=== PATIENT | female | born 1975 | race American Indian/Alaskan Native ===

== ENCOUNTER 2017-11-10 15:35 | Emergency (ER) | payer MEDICAID ==
--- NOTE | 2017-11-10 16:10 | Emergency Department Report ---
Chief Complaint: Abdominal Pain Stated Complaint: LEFT SIDE ABD PAIN Time Seen by Provider: 11/10/17 16:05 - HPI History of Present Illness: Patient is a 42-year-old female with a history of fibroids who presents presents ED complaining of lower pelvic pain 3 days. Patient states pain is worse on the left side and localized to the left side low pelvic region. Patient denies any vaginal bleeding, vaginal discharge, she reports last measure. This 10/10/2017 and states recently she was on the dip all through to 4 months ago but did not go back for a second Depo shot due to worsening depression symptoms while on the Depo Prov - ROS Review of Systems: As noted in HPI - Exam Vital Signs: Vital Signs 11/10/17 15:40 Temperature 98.5 F Pulse Rate 113 H Respiratory 18 Rate Blood Pressure 139/79 O2 Sat by Pulse 98 Oximetry Physical Exam: GENERAL: Alert and oriented x3, no apparent distress, Normal Gait, atraumatic. ABDOMEN: No organomegaly was noted,Positive bowel sounds, soft, and non- distended. . Nontender to palpation on all Quadrants, NO CVA tenderness. BACK: Full range of motion, no spinal tenderness, nontender to palpation. MSE screening note: Focused history and physical exam performed. Due to findings the following was ordered: ED Medical Decision Making - Medical Decision Making 42-year-old female in no acute distress Labs ordered, ultrasound ordered If all labs are Normal patient can be seen by fast track provider Otherwise can be seen by ED physician ED Disposition for MSE Condition: Stable Instructions: Abdominal Pain (ED)
[2017-11-10 16:35] LABS: Bilirubin,Urine NEG (Negative); Blood,Urine NEG (Negative); Ketones,Urine TR mg/dL (Negative); Leukocyte Esterase,Urine NEG (Negative); Mucus,Urine 1+ /HPF; Nitrite,Urine NEG (Negative); Protein,Urine <15 mg/dL mg/dL (Negative)
[2017-11-10 16:40] LABS: Basophils % (Auto) 0.7 % (0.0-1.8); Eosinophils % (Auto) 3.2 % (0.0-4.3); Hematocrit 40.1 % (30.3-42.9); Hemoglobin 13.3 gm/dl (10.1-14.3); Mean Corpuscular HGB Conc 33 % (30-34); Mean Corpuscular Hemoglobin 28 pg (28-32); Mean Corpuscular Volume 85 fl (79-97); Platelet Count 300 K/mm3 (140-440); Red Blood Count 4.71 M/mm3 (3.65-5.03); Red Cell Distribution Width 14.2 % (13.2-15.2); White Blood Count 9.1 K/mm3 (4.5-11.0)
--- NOTE | 2017-11-10 18:00 | Ultrasound Report ---
FINAL REPORT PROCEDURE: US PELVIC COMPLETE TECHNIQUE: Real-time transabdominal sonography in multiple planes of pelvis was performed with image documentation. This examination was performed without Doppler. Vascular abnormalities, including ovarian torsion, will not be detectable without Doppler evaluation. CPT 57235 HISTORY: pelv pain COMPARISON: No prior studies are available for comparison. FINDINGS: UTERUS Size: 9.3 cm. Endometrial thickness: 9 mm. Orientation: anteverted. Cervix: Normal. 3.8 centimeter length Fibroids/masses: 1.5 x 1.2 centimeter heterogeneous nodule in the anterior fundus likely fibroid RIGHT Ovary: 4.1 x 2.3 cm. Appearance: Normal flow. There is a ovoid state shaped cyst in the right adnexa measures 2.1 x 1.5 centimeter nonspecific LEFT Ovary: 2.5 x 1.7 cm. Appearance: Normal. Pelvic fluid: Trace free fluid Other: None. IMPRESSION: Nonspecific cystic change right ovary. Minimal fibroid uterus Trace free fluid
--- NOTE | 2017-11-10 18:02 | Ultrasound Report ---
FINAL REPORT PROCEDURE: US TRANSVAGINAL TECHNIQUE: Real-time transvaginal sonography in multiple planes of the pelvis was performed with image documentation. This examination was performed without Doppler. Vascular abnormalities, including ovarian torsion, will not be detectable without Doppler evaluation. CPT 48983 HISTORY: pelv pain COMPARISON: No prior studies are available for comparison. FINDINGS: UTERUS Size: 9.3 cm. Endometrial thickness: 9 mm. Orientation: anteverted. Cervix: Normal. Fibroids/masses: 1.5 x 1.2 centimeter fibroid anterior mid uterus. RIGHT Ovary: 4.1 x 2.3 centimeters with 1.7 centimeter cyst, nonspecific. Appearance: Normal. LEFT Ovary: 2.5 x 1.7 cm. Appearance: Normal. Pelvic fluid: Trace free fluid Other: None. IMPRESSION: Minimal fibroid uterus. Trace free fluid. Nonspecific cyst right ovary possibly follicular. Followup advised as warranted
--- NOTE | 2017-11-10 22:03 | Emergency Department Report ---
ED Abdominal Pain HPI - General Chief Complaint: Abdominal Pain Stated Complaint: LEFT SIDE ABD PAIN Time Seen by Provider: 11/10/17 16:05 Source: patient Mode of arrival: Ambulatory Limitations: No Limitations - History of Present Illness Initial Comments: Patient is a 42-year-old female with a history of fibroids who presents presents ED complaining of lower pelvic pain 3-4 days. Patient states pain is worse on the left side and localized to the left side low pelvic region. Patient denies any vaginal bleeding, vaginal discharge, she reports LMP 2016 and states recently she was on the depo all through to 4 months ago but did not go back for a second Depo shot due to worsening depression symptoms while on the Depo Prov. Denies any urinary burning, frequency or urgency. Denies any nausea or vomiting. Denies any fever or chills. Denies any vaginal bleeding or discharge. Patient reports possible endometriosis, but no diagnosis was given. She resides her menstrual cycles are heavy. MD Complaint: abdominal pain, other (nausea and vomiting) Onset/Timin -: days(s) Location: suprapubic (pelvic area) Radiation: none Migration to: suprapubic Severity: severe Severity scale (0 -10): 10 Quality: cramping Consistency: intermittent Improves With: nothing Worsens With: nothing Context: other (Patient with fibroid and report endometrosis) Associated Symptoms: denies: nausea, vomiting, diarrhea, fever, chills, constipation, dysuria, hematemesis, hematochezia, melena, hematuria, anorexia, syncope Treatments Prior to Arrival: NSAIDs - Related Data LMP Date: 10/10/17 Previous Rx's Medication Instructions Recorded Last Taken Type metroNIDAZOLE [Flagyl] 500 mg PO Q12H #14 tablet 09/22/13 Unknown Rx traMADol [Ultram 50 MG tab] 50 mg PO Q4HR PRN #10 tablet 09/22/13 Unknown Rx Acetaminophen/Codeine [Tylenol 1 tab PO Q6H PRN 3 Days #12 tab 11/10/17 Unknown Rx /Codeine # 3 tab] Allergies Allergy/AdvReac Type Severity Reaction Status Date / Time No Known Allergies Allergy Unverified 11/10/17 23:28 ED Review of Systems ROS: Stated complaint: LEFT SIDE ABD PAIN Other details as noted in HPI Comment: All other systems reviewed and negative Constitutional: no symptoms reported Respiratory: no symptoms reported Cardiovascular: denies: chest pain, palpitations, dyspnea on exertion, orthopnea , edema, syncope, paroxysmal nocturnal dyspnea Gastrointestinal: abdominal pain. denies: nausea, vomiting, diarrhea, constipation, hematemesis, melena, hematochezia Genitourinary: abnormal menses. denies: urgency, dysuria, frequency, hematuria , discharge, dyspareunia Musculoskeletal: denies: back pain, joint swelling, arthralgia, myalgia Skin: denies: rash Neurological: denies: headache, weakness, numbness, paresthesias, confusion, abnormal gait, vertigo ED Past Medical Hx - Past Medical History Previous Medical History?: Yes Additional medical history: Ovarian cyst, Cellulitis of right lower extremity - Surgical History Past Surgical History?: No - Family History Family history: no significant - Social History Smoking Status: Never Smoker Substance Use Type: Prescribed, Tranquilizers - Medications Home Medications: Home Medications Medication Instructions Recorded Confirmed Last Taken Type metroNIDAZOLE [Flagyl] 500 mg PO Q12H #14 tablet 09/22/13 Unknown Rx traMADol [Ultram 50 MG tab] 50 mg PO Q4HR PRN #10 tablet 09/22/13 Unknown Rx Acetaminophen/Codeine [Tylenol 1 tab PO Q6H PRN 3 Days #12 tab 11/10/17 Unknown Rx /Codeine # 3 tab] ED Physical Exam - General Limitations: No Limitations General appearance: alert, in no apparent distress - Head Head exam: Present: atraumatic, normocephalic, normal inspection - Eye Eye exam: Present: normal appearance, PERRL, EOMI. Absent: nystagmus, periorbital swelling, periorbital tenderness Pupils: Present: normal accommodation - ENT ENT exam: Present: normal exam, normal orophraynx, mucous membranes moist - Neck Neck exam: Present: normal inspection, full ROM. Absent: tenderness, meningismus, lymphadenopathy, thyromegaly - Respiratory Respiratory exam: Present: normal lung sounds bilaterally. Absent: respiratory distress, wheezes, chest wall tenderness, accessory muscle use, decreased breath sounds - Cardiovascular Cardiovascular Exam: Present: normal rhythm, tachycardia, normal heart sounds. Absent: systolic murmur, diastolic murmur - GI/Abdominal GI/Abdominal exam: Present: soft, normal bowel sounds. Absent: bruit, pulsatile mass, guarding, rebound, tenderness, organomegaly, distended, rigid, mass, hernia - External exam: Present: normal external exam - Extremities Exam Extremities exam: Present: normal inspection, full ROM, normal capillary refill , calf tenderness, other (No CCE, +2 pulses in all extremities. No neurovascular compromise.). Absent: tenderness, pedal edema, joint swelling - Back Exam Back exam: Present: normal inspection, full ROM. Absent: tenderness, CVA tenderness (R), CVA tenderness (L), muscle spasm, paraspinal tenderness, vertebral tenderness, rash noted - Neurological Exam Neurological exam: Present: alert, oriented X3, normal gait, reflexes normal. Absent: motor sensory deficit - Psychiatric Psychiatric exam: Present: normal affect, normal mood - Skin Skin exam: Present: warm, dry, intact, normal color. Absent: rash ED Course Vital Signs 11/10/17 11/10/17 11/10/17 15:40 23:33 23:50 Temperature 98.5 F 98.4 F Pulse Rate 113 H 94 H 80 Respiratory 18 16 Rate Blood Pressure 139/79 Blood Pressure 125/79 [Right] O2 Sat by Pulse 98 99 Oximetry Apical heart rate is at 94 bpm Vital Signs 11/10/17 11/10/17 15:40 23:33 Temperature 98.5 F Pulse Rate 113 H 94 H Respiratory 18 Rate Blood Pressure 139/79 O2 Sat by Pulse 98 Oximetry Vital Signs 11/10/17 11/10/17 11/10/17 15:40 23:33 23:50 Temperature 98.5 F 98.4 F Pulse Rate 113 H 94 H 80 Respiratory 18 16 Rate Blood Pressure 139/79 Blood Pressure 125/79 [Right] O2 Sat by Pulse 98 99 Oximetry - Reevaluation(s) Reevaluation #1: 11/10/17 23:34 Given Toradol 60 mg IM in emergency room for pelvic pain. ED Medical Decision Making - Lab Data Result diagrams: 11/10/17 16:17 Lab Results 11/10/17 11/10/17 11/10/17 Range/Units 16:11 16:17 16:17 WBC 9.1 (4.5-11.0) K/mm3 RBC 4.71 (3.65-5.03) M/mm3 Hgb 13.3 (10.1-14.3) gm/dl Hct 40.1 (30.3-42.9) % MCV 85 (79-97) fl MCH 28 (28-32) pg MCHC 33 (30-34) % RDW 14.2 (13.2-15.2) % Plt Count 300 (140-440) K/mm3 Lymph % (Auto) 20.2 (13.4-35.0) % [place] % (Auto) 7.7 H (0.0-7.3) % Eos % (Auto) 3.2 (0.0-4.3) % Baso % (Auto) 0.7 (0.0-1.8) % Lymph # 1.8 (1.2-5.4) K/mm3 [place] # 0.7 (0.0-0.8) K/mm3 Eos # 0.3 (0.0-0.4) K/mm3 Baso # 0.1 (0.0-0.1) K/mm3 Seg Neutrophils % 68.2 (40.0-70.0) % Seg Neutrophils # 6.2 (1.8-7.7) K/mm3 HCG, Qual Negative (Negative) Urine Color Yellow (Yellow) Urine Turbidity Clear (Clear) Urine pH 5.0 (5.0-7.0) Ur Specific [place] 1.031 H (1.003-1.030) Urine Protein <15 mg/dl (Negative) mg/dL Urine Glucose (UA) Neg (Negative) mg/dL Urine Ketones Tr (Negative) mg/dL Urine Blood Neg (Negative) Urine Nitrite Neg (Negative) Urine Bilirubin Neg (Negative) Urine Urobilinogen 2.0 (<2.0) mg/dL Ur Leukocyte Esterase Neg (Negative) Urine WBC (Auto) 2.0 (0.0-6.0) /HPF Urine RBC (Auto) 2.0 (0.0-6.0) /HPF U Epithel Cells (Auto) 17.0 H (0-13.0) /HPF Urine Mucus 1+ /HPF - Radiology Data Radiology results: report reviewed Ultrasound transvaginal reports minimal fibroid uterus. Trace free fluid. Nonspecific cyst right ovary possible follicular. Follow-up advised. Ultrasound pelvic revealed nonspecific cystic changes right ovary, minimal fibroid uterus and trace free fluid. - Medical Decision Making ED course: He reports that she has pelvic pain that's been ongoing for the last 3-4 days and she also has abnormal menstrual cycles which is not new. Patient was questioning whether she has endometriosis. Abdominal exam normal without any tenderness or acute abdomen. Ultrasound of the pelvis and try an vaginal ultrasound revealed patient with minimal uterine fibroid, right ovarian cyst and small amount free pelvic fluid. I discussed results with patient. Her CBC , chemistry within normal limits and urinalysis within normal limits, , serum negative. She was having no vaginal bleeding in or vaginal discharge nor is she therefore thinks is appropriate for her to be referred to [facility] for further evaluation to include pelvic exam and management of ovarian cysts and uterine fibroid. Patient also not concerned for any STDs. Was given Toradol 60 mg IM emergency room for pain. She voiced understanding the discharge instruction, diagnostics the lab results, follow-up and treatment plan. She says she takes naproxen at home and it doesn't help her pain so I told her I will give her a few doses of Tylenol No. 3 but she should also continue to take her naproxen and follow-up with [facility]. Does have a primary care physician who is managing her but states that she doesn't have [facility] so I will refer her to my [facility] who is on-call. I told her to call tomorrow to schedule an appointment. Critical care attestation.: If time is entered above; I have spent that time in minutes in the direct care of this critically ill patient, excluding procedure time. ED Disposition Clinical Impression: Pelvic pain Uterine fibroid Qualifiers: Uterine leiomyoma location: unspecified location Qualified Code(s): D25.9 - Leiomyoma of uterus, unspecified Ovarian cyst Qualifiers: Laterality: right Qualified Code(s): N83.201 - Unspecified ovarian cyst, right side Disposition: DC-01 TO HOME OR SELFCARE Is pt being admited?: No Does the pt Need Aspirin: No Condition: Stable Instructions: Ovarian Cyst (ED), Uterine Fibroids (ED), Abdominal Pain (ED) Additional Instructions: Follow-up with my [facility] for management of uterine fibroid, right ovarian cyst and ongoing pelvic pain You can take Tylenol 3 in addition with naproxen to help with pain but please do not drive or operate heavy machinery while taking Tylenol 3 at this medication will cause drowsiness Increasing her fluid intake Prescriptions: Acetaminophen/Codeine [Tylenol /Codeine # 3 tab] 1 tab PO Q6H PRN 3 Days #12 tab PRN Reason: Pain, Moderate (4-6) Referrals: PRIMARY CARE, [Primary Care Provider] - 2-3 Days [facility] [Provider Group] - 2-3 Days Forms: Accompanied Note, Work/School Release Form(ED)
[2017-11-10] MEDS ORDERED: TORADOL IM ONE (23:27)
[2017-11-10] MEDS ORDERED: NORCO 5/325 ONE ×2 (23:28)
[2017-11-10] MEDS ORDERED: TORADOL ONE (23:28)
[2017-11-11 00:47] VITALS: BP 125/79
== END 2017-11-10 23:50 | disposition home or self-care (01) ==
LOC: ED 15:35
DX: D25.9 Leiomyoma of uterus, unspecified (principal); N83.201 Unspecified ovarian cyst, right side; R10.2 Pelvic and perineal pain
CPT/HCPCS: 36415; 76830; 76856; 81001; 84703; 85025; 96372; 99284; J1885

== ENCOUNTER 2017-11-15 21:18 | Emergency (ER) | payer OTHER, MEDICAID ==
[2017-11-15 21:33] VITALS: BP 134/86
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
--- NOTE | 2017-11-16 00:59 | XRay Report ---
FINAL REPORT EXAM: XR SPINE THORACIC 3V HISTORY: upper back pain TECHNIQUE: AP and lateral views of the thoracic spine were submitted. FINDINGS: The disc heights and alignment appear normal. There is no evidence of fracture. The soft tissues are well maintained. IMPRESSION: No evidence of acute injury.
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
== END 2017-11-16 00:45 | disposition home or self-care (01) ==
LOC: ED 21:18
DX: S46.912A Strain of unspecified muscle, fascia and tendon at shoulder and upper arm level, left arm, initial encounter (principal); S29.012A Strain of muscle and tendon of back wall of thorax, initial encounter; V89.2XXA Person injured in unspecified motor-vehicle accident, traffic, initial encounter; Y93.89 Activity, other specified; Y92.89 Other specified places as the place of occurrence of the external cause; Y99.8 Other external cause status
CPT/HCPCS: 72040; 72072; 99283

== ENCOUNTER 2018-02-03 06:31 | Emergency (ER) | payer MEDICAID, OTHER ==
[2018-02-03 06:38] VITALS: BP 111/79
[2018-02-03 07:06] LABS: Basophils # (Auto) 0.1 K/mm3 (0.0-0.1); Basophils % (Auto) 0.7 % (0.0-1.8); Eosinophils # (Auto) 0.2 K/mm3 (0.0-0.4); Eosinophils % (Auto) 2.6 % (0.0-4.3); Hematocrit 42.3 % (30.3-42.9); Hemoglobin 14.1 gm/dl (10.1-14.3); Lymphocytes # (Auto) 1.4 K/mm3 (1.2-5.4); Lymphocytes % (Auto) 16.5 % (13.4-35.0); Mean Corpuscular HGB Conc 33 % (30-34); Mean Corpuscular Hemoglobin 28 pg (28-32); Mean Corpuscular Volume 84 fl (79-97); Monocytes # (Auto) 0.6 K/mm3 (0.0-0.8); Platelet Count 338 K/mm3 (140-440); Red Blood Count 5.02 M/mm3 (3.65-5.03)
[2018-02-03 07:19] LABS: BUN/Creatinine Ratio 11; Blood Urea Nitrogen 8 mg/dL (7-17); Calcium 9.2 mg/dL (8.4-10.2); Hemolysis Index 7
--- NOTE | 2018-02-03 07:29 | Cat Scan Report ---
FINAL REPORT EXAM: CT HEAD/BRAIN WO CON HISTORY: pain in neck and back of head TECHNIQUE: Routine axial imaging was obtained of the brain without IV contrast. FINDINGS: The ventricular system is appropriate in size and is symmetric. There is no evidence of acute stroke or hemorrhage. The basal cisterns appear normal. The visualized sinuses are clear. The mastoid air cells are well pneumatized. The calvarium appears intact. IMPRESSION: Within normal limits.
== END 2018-02-03 15:51 | disposition left against medical advice (07) ==
LOC: ED 06:31
DX: R51 Headache (principal); Z53.21 Procedure and treatment not carried out due to patient leaving prior to being seen by health care provider
CPT/HCPCS: 36415; 70450; 80048; 85025

== ENCOUNTER 2019-08-28 11:26 | Emergency (ER) | payer MEDICAID, OTHER ==
[2019-08-28 11:32] VITALS: BP 136/98
--- NOTE | 2019-08-28 11:32 | Emergency Department Report ---
Blank Doc - Documentation Documentation: 44-year-old female that presents with urinary frequency and pelvic pain. This initial assessment/diagnostic orders/clinical plan/treatment(s) is/are subject to change based on patient's health status, clinical progression and re- assessment by fellow clinical providers in the ED. Further treatment and workup at subsequent clinical providers discretion. Patient/guardians urged not to elope from the ED as their condition may be serious if not clinically assessed and managed. Initial orders include: 1- Patient sent to [facility] for further evaluation and treatment 2- UA
[2019-08-28 12:15] LABS: Bilirubin,Urine NEG (Negative); Blood,Urine NEG (Negative); Color,Urine Yellow (Yellow); Mucus,Urine FEW /HPF; Protein,Urine <15 mg/dL mg/dL (Negative); Urobilinogen,Urine < 2.0 mg/dL (<2.0)
[2019-08-28 12:32] LABS: HCG Qualitative,Urine Negative (Negative)
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
== END 2019-08-28 12:59 | disposition home or self-care (01) ==
LOC: ED 11:26
DX: R10.32 Left lower quadrant pain (principal); F43.10 Post-traumatic stress disorder, unspecified; Z79.1 Long term (current) use of non-steroidal anti-inflammatories (NSAID); Z79.899 Other long term (current) drug therapy
CPT/HCPCS: 81001; 81025; 99283

== ENCOUNTER 2019-12-23 09:12 | Emergency (ER) | payer SELFPAY ==
[2019-12-23 09:19] VITALS: BP 158/95
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
[2019-12-23 10:03] LABS: Bacteria,Urine 1+ /HPF (Negative); Bilirubin,Urine NEG (Negative); Blood,Urine LG (Negative); Color,Urine Yellow (Yellow); Mucus,Urine FEW /HPF; Urobilinogen,Urine < 2.0 mg/dL (<2.0)
[2019-12-23 10:05] LABS: RBC,Urine > 182.0 /HPF (0.0-6.0)
== END 2019-12-23 10:57 | disposition home or self-care (01) ==
LOC: ED 09:12
DX: N39.0 Urinary tract infection, site not specified (principal)
CPT/HCPCS: 81001; 87076; 87086; 87186; 99283

== ENCOUNTER 2020-10-16 21:37 | Emergency (ER) | payer SELFPAY | END 2020-10-16 22:20 | disposition left against medical advice (07) | LOC: ED 21:37 | DX: R25.1 Tremor, unspecified (principal); Z53.21 Procedure and treatment not carried out due to patient leaving prior to being seen by health care provider ==

== ENCOUNTER 2020-11-01 06:00 | Emergency (ER) | payer SELFPAY ==
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
[2020-11-01 08:17] VITALS: BP 142/85
[2020-11-01 08:27] LABS: Hematocrit 41.6 % (30.3-42.9); Hemoglobin 13.9 gm/dl (10.1-14.3); Mean Corpuscular HGB Conc 34 % (30-34); Mean Corpuscular Volume 85 fl (79-97); Platelet Count 287 K/mm3 (140-440); Red Blood Count 4.88 M/mm3 (3.65-5.03)
[2020-11-01 08:39] LABS: HCG Qualitative,Urine Negative (Negative)
[2020-11-01 08:40] LABS: Bilirubin,Urine NEG (Negative); Blood,Urine NEG (Negative); Color,Urine Yellow (Yellow); Mucus,Urine FEW /HPF; Protein,Urine <15 mg/dL mg/dL (Negative); Urobilinogen,Urine < 2.0 mg/dL (<2.0); WBC,Urine < 1.0 /HPF (0.0-6.0)
--- NOTE | 2020-11-01 08:47 | Ultrasound Report ---
ULTRASOUND PELVIS INDICATION / CLINICAL INFORMATION: pelvic pain. TECHNIQUE: Transabdominal. Duplex Color Doppler used: Yes. COMPARISON: None available FINDINGS: UTERUS: The uterus measures 9.9 x 6.4 x 5.2 cm. The uterus is heterogeneous with 2.6 cm myometrial m ass near the uterine body, compatible with fibroid. The endometrial stripe measures 1.3 cm. RIGHT ADNEXA: There is normal follicular changes within the right ovary, to include 2.1 cm dominant f ollicle. No suspicious cystic or solid mass identified. Normal color Doppler flow. LEFT ADNEXA: No significant ovarian cyst or mass. Normal color Doppler blood flow. FREE FLUID: None. ADDITIONAL FINDINGS: None. IMPRESSION: 1. Uterine fibroid. 2. Unremarkable sonographic appearance of the ovaries. Signer Name: Fantasma Jordan MD Signed: 11/01/2020 8:42 AM Workstation Name: [id number]
[2020-11-01 08:51] LABS: Alanine Aminotransferase 17 units/L (7-56); Albumin 4.2 g/dL (3.9-5); Blood Urea Nitrogen 10 mg/dL (7-17); Calcium 9.4 mg/dL (8.4-10.2); Hemolysis Index 9
[2020-11-01 09:21] LABS: BUN/Creatinine Ratio 17
== END 2020-11-01 09:00 | disposition home or self-care (01) ==
LOC: ED 06:00 → NM 06:00 → ED 09:00
DX: D25.9 Leiomyoma of uterus, unspecified (principal); F43.11 Post-traumatic stress disorder, acute; Z87.891 Personal history of nicotine dependence; Z79.899 Other long term (current) drug therapy
CPT/HCPCS: 36415; 76856; 80053; 81001; 81025; 84703; 85027

== ENCOUNTER 2021-01-24 02:05 | Emergency (ER) | payer SELFPAY ==
[2021-01-24 03:06] VITALS: BP 156/67
[2021-01-24] MEDS ORDERED: LORazepam 2 MG/ML VIAL IM STA (03:16)
== END 2021-01-24 04:30 ==
LOC: ED 02:05
DX: R07.89 Other chest pain (principal); Z53.21 Procedure and treatment not carried out due to patient leaving prior to being seen by health care provider
CPT/HCPCS: 93005; J2060

== ENCOUNTER 2021-02-11 13:07 | Emergency (ER) | payer SELFPAY ==
[2021-02-11 13:57] VITALS: BP 175/92
[2021-02-11] MEDS ORDERED: traMADol 50 MG TAB PO ONE (15:45)
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
== END 2021-02-11 17:57 | disposition home or self-care (01) ==
LOC: ED 13:07
DX: S16.1XXA Strain of muscle, fascia and tendon at neck level, initial encounter (principal); Z79.899 Other long term (current) drug therapy; V49.49XA Driver injured in collision with other motor vehicles in traffic accident, initial encounter; Y92.410 Unspecified street and highway as the place of occurrence of the external cause; Y93.89 Activity, other specified; Y99.8 Other external cause status
CPT/HCPCS: 72125

== ENCOUNTER 2021-08-11 08:48 | Emergency (ER) | payer SELFPAY ==
[2021-08-11 09:22] VITALS: BP 140/78
[2021-08-11] MEDS ORDERED: diphenhydrAMINE 25 MG/10 ML ORAL LIQUID PO ONE (10:19)
[2021-08-11] MEDS ORDERED: HYDROcodone/ACETAMINOPHEN 5-325 MG TAB PO ONE (10:19)
[2021-08-11] MEDS ORDERED: METOCLOPRAMIDE 10 MG TAB PO ONE (10:19)
[2021-08-11 11:25] LABS: Basophils % (Auto) 0.6 % (0.0-1.8); Eosinophils # (Auto) 0.1 K/mm3 (0.0-0.4); Eosinophils % (Auto) 2.2 % (0.0-4.3); Hematocrit 37.7 % (30.3-42.9); Hemoglobin 12.7 gm/dl (10.1-14.3); Lymphocytes % (Auto) 16.8 % (13.4-35.0); Mean Corpuscular HGB Conc 34 % (30-34); Mean Corpuscular Volume 84 fl (79-97); Monocytes # (Auto) 0.3 K/mm3 (0.0-0.8); Monocytes % (Auto) 5.7 % (0.0-7.3); Platelet Count 309 K/mm3 (140-440); Red Blood Count 4.47 M/mm3 (3.65-5.03); Red Cell Distribution Width 14.5 % (13.2-15.2)
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
[2021-08-11 11:54] LABS: Alanine Aminotransferase 15 units/L (7-56); Albumin 4.2 g/dL (3.9-5); Blood Urea Nitrogen 8 mg/dL (7-17); Calcium 8.9 mg/dL (8.4-10.2); Hemolysis Index 17
[2021-08-11 11:55] LABS: BUN/Creatinine Ratio 11
--- NOTE | 2021-08-11 12:17 | XRay Report ---
CHEST 2 VIEWS INDICATION: Chest Pain. COMPARISON: 06/24/2020 FINDINGS: SUPPORT DEVICES: None. HEART: Within normal limits. LUNGS/PLEURA: No acute air space or interstitial disease. No pneumothorax. ADDITIONAL FINDINGS: None. IMPRESSION: 1. No acute findings. Signer Name: Abdon Armas MD Signed: 08/11/2021 12:13 PM Workstation Name: [id number]
--- NOTE | 2021-08-11 13:15 | Electrocardiograph Report ---
[facility] Test Date: 2021-08-11 Test Time: 08:57:12 Pat Name: ANDRIY PENG Department: Room: Gender: F Desktop Support Technician: VANDANA : 1975 Requested By: SWATI ANDRES Order Number: [id number] Reading MD: Sukhwinder Lopez Measurements Intervals [place] Rate: 82 P: 72 [place]: 143 QRS: 25 QRSD: 66 T: 9 QT: 372 QTc: 435 Interpretive Statements Sinus rhythm No previous ECG available for comparison Electronically Signed On 08-11-2021 13:15:16 EDT by Sukhwinder Lopez
[2021-08-11 13:33] LABS: INR 0.91 (0.87-1.13)
== END 2021-08-11 14:44 | disposition home or self-care (01) ==
LOC: ED 08:48
DX: F41.9 Anxiety disorder, unspecified (principal); R51.9 Headache, unspecified; Z79.899 Other long term (current) drug therapy
CPT/HCPCS: 36415; 71046; 80053; 84484; 84703; 85025; 85610; 85730; 93005; 99284; Q0163

== ENCOUNTER 2022-03-18 12:58 | Emergency (ER) | payer SELFPAY ==
[2022-03-18 14:03] VITALS: BP 169/99
[2022-03-18] MEDS ORDERED: TETRACAINE 0.5% OPHTH SOLN 4ML OU ONE (14:13)
[2022-03-18] MEDS ORDERED: FLUORESCEIN 1 MG STRIP OP ONE (14:13)
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
[2022-03-18] MEDS ORDERED: ERYTHROMYCIN 5 MG/1 GM OPHTH OINT OU SCH (15:00)
== END 2022-03-18 19:05 | disposition home or self-care (01) ==
LOC: ED 12:58
DX: H00.011 Hordeolum externum right upper eyelid (principal); Z72.89 Other problems related to lifestyle; Z79.899 Other long term (current) drug therapy
CPT/HCPCS: 99282